=== PATIENT | male | born 1985 | race Caucasian/White ===

== ENCOUNTER 2019-09-06 09:14 | Emergency (ER) | payer OTHER ==
[2019-09-06] MEDS ORDERED: Bacitracin 1 PK ONE (09:46)
== END 2019-09-06 09:55 | disposition home or self-care (01) ==
LOC: NAV ERS 09:14
DX: L02.511 Cutaneous abscess of right hand (principal); Z87.891 Personal history of nicotine dependence
CPT/HCPCS: 26010